=== PATIENT | male | born 1950 | race Caucasian/White ===

== ENCOUNTER 2019-05-11 18:36 | Inpatient (IN) | payer OTHER ==
--- OUTSIDE RECORDS SUMMARY | 2019-05-11 18:38 | XMS REPORT ---
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 Problem Bipolar 1 disorder F31.9 Active Problem Low energy R53.83 Active Problem Kidney stones N20.0 Active Problem Sinus problem J34.9 Active Problem Depression with anxiety F41.8 Active Problem Seasonal allergies J30.2 Active Medications Medication Code Code Instructions Start End Status Dosage System Date Date Lamictal [facility] 18852999023 200 MG Orally Active 1 tablet Once a day Abilify [facility] 32887658437 10 MG Orally Active 1 tablet Once a day Venlafaxine HCl [facility] 11264610494 150 MG Orally Active 1 tablet ER Once a day with food Clonazepam [facility] 93761536802 1 MG Orally PRN Active 1 tablet Results No Known Results Summary Purpose eClinicalWorks Submission
--- OUTSIDE RECORDS SUMMARY | 2019-05-11 18:38 | XMS REPORT ---
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
--- OUTSIDE RECORDS SUMMARY | 2019-05-11 18:39 | XMS REPORT ---
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 Problem Low energy R53.83 Active Problem Obesity (BMI 30.0-34.9) E66.9 Active Problem Ventral hernia without obstruction K43.9 Active or gangrene Problem Hyperlipidemia, unspecified E78.5 Active hyperlipidemia type Problem Genital herpes simplex, unspecified A60.00 Active site Assessment Dizziness R42 Active Assessment Allergic rhinitis, unspecified J30.9 Active seasonality, unspecified trigger Problem Overweight (BMI 25.0-29.9) E66.3 Active Assessment Ventral hernia without obstruction K43.9 Active or gangrene Problem Skin lesion L98.9 Active Problem Dizziness R42 Active Problem Allergic rhinitis, unspecified J30.9 Active seasonality, unspecified trigger Problem Shortness of breath R06.02 Active Problem Polyp of colon, unspecified part of K63.5 Active colon, unspecified type Problem Squamous cell carcinoma of skin C44.92 Active Assessment Hyperlipidemia, unspecified E78.5 Active hyperlipidemia type Problem Depression with anxiety F41.8 Active Problem Bipolar 1 disorder F31.9 Active Problem Kidney stones N20.0 Active Problem Seasonal allergies J30.2 Active Medications Medication Code Code Instructions Start End Status Dosage System Date Date Meclizine HCl [facility] 84071230937 25 mg Orally December Active 1 tablet as Three times a 2018 needed for day dizziness Venlafaxine HCl ND 34799278451 225 MG Orally Active 1 tablet ER Once a day in with food am ASA NDC 0 Oral Once Active 81 mg daily Acyclovir [facility] 33803007087 400 MG Orally Sep 12, Active 1 tablet Twice a day 2017 Atorvastatin [facility] 89714327718 40 MG Orally Active 1 tablet Calcium Once daily in evening Trazodone HCl [facility] 92816359527 100 MG Orally Active 1 tablet at Once a day bedtime Lamictal [facility] 20188777777 200 MG Orally Active 1 tablet Once a day in am Aripiprazole [facility] 20448586798 15 MG Orally Active 1/2 tablet Once daily in am Vitamin D [facility] [address]-01 1000 UNIT Active 1 capsule Orally Once daily OTC Clonazepam [facility] 95202054524 1 MG Orally as Active 1/2 tablet directed as needed Results No Known Results Summary Purpose eClinicalWorks Submission
--- OUTSIDE RECORDS SUMMARY | 2019-05-11 18:39 | XMS REPORT ---
:1950 Author Organization eClinicalWorks Care Team Providers Name Role Phone Lesley Wilson Provider Role Unavailable Allergies No Known Allergies Problems Problem Type Condition Code Onset Dates Condition Status Problem Kidney stones N20.0 Active Problem Depression with anxiety F41.8 Active Problem Seasonal allergies J30.2 Active Problem Polyp of colon, unspecified part of K63.5 Active colon, unspecified type Problem Bipolar 1 disorder F31.9 Active Problem Sinus problem J34.9 Active Problem Genital herpes simplex, unspecified A60.00 Active site Problem Allergic rhinitis, unspecified J30.9 Active seasonality, unspecified trigger Problem Hyperlipidemia, unspecified E78.5 Active hyperlipidemia type Problem Low energy R53.83 Active Problem 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
--- OUTSIDE RECORDS SUMMARY | 2019-05-11 18:39 | XMS REPORT ---
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 Problem Bipolar 1 disorder F31.9 Active Assessment Skin lesion L98.9 Active Problem Sinus problem J34.9 Active Medications Medication Code Code Instructions Start End Status Dosage System Date Date Atorvastatin [facility] 08608367523 40 MG Orally Active 1 tablet Calcium Once daily in evening Clonazepam [facility] 79368911487 1 MG Orally PRN Active 1 tablet Lamictal [facility] 05659955714 200 MG Orally Active 1 tablet Once a day in am Aripiprazole [facility] 64427652121 15 MG Orally Active 1/2 tablet Once daily in am Acyclovir [facility] 21901431636 400 MG Orally Sep 12, Active 1 tablet Twice a day 2017 Abilify [facility] 76941398789 10 MG Orally Active 1 tablet Once a day Venlafaxine HCl [facility] 65967819480 225 MG Orally Active 1 tablet ER Once a day in with food am ASA NDC 0 Oral Once Active 81 mg daily Vitamin D [facility] [address]-42 1000 UNIT Active 1 capsule Orally Once daily OTC Results No Known Results Summary Purpose eClinicalWorks Submission
--- OUTSIDE RECORDS SUMMARY | 2019-05-11 18:39 | XMS REPORT ---
[...] of K63.5 Active colon, unspecified type Assessment Genital herpes simplex, unspecified A60.00 Active site Problem Bipolar 1 disorder F31.9 Active Assessment Hyperlipidemia, unspecified E78.5 Active hyperlipidemia type Problem Sinus problem J34.9 Active Medications Medication Code Code Instructions Start End Status Dosage System Date Date Acyclovir [facility] 51975403504 400 MG Orally Sep 12, Active 1 tablet Twice a day 2017 ASA ND 0 Oral Once Active 81 mg daily Clonazepam [facility] 25313225342 1 MG Orally PRN Active 1 tablet Vitamin D [facility] [address]-80 1000 UNIT Active 1 capsule Orally Once daily OTC Aripiprazole [facility] 27416207346 15 MG Orally Active 1/2 tablet Once daily in am Lamictal [facility] 03250976567 200 MG Orally Active 1 tablet Once a day in am Venlafaxine HCl [facility] 25247718480 225 MG Orally Active 1 tablet ER Once a day in with food am Abilify [facility] 57536524827 10 MG Orally Active 1 tablet Once a day Atorvastatin [facility] 18840272488 40 MG Orally Active 1 tablet Calcium Once daily in evening Results Name Result Date Reference Range Unit Abnormality Flag COMPREHENSIVE METABOLIC PANEL(CMP) ----ALBUMIN/GLOBULI 2.1 [id number] 1.0-2.5 (calc) N N RATIO ----GLOBULIN 2.1 [id number] 1.9-3.7 g/dL N (calc) ----ALKALINE 123 20180913 40-115 U/L H PHOSPHATASE ----BILIRUBIN, 0.7 14350346 0.2-1.2 mg/dL N TOTAL ----CHLORIDE 105 74466741 98-110 mmol/L N ----ALT 22 20180913 9-46 U/L N ----POTASSIUM 4.0 55990344 3.5-5.3 mmol/L N ----AST 21 20180913 10-35 U/L N ----SODIUM 142 14423180 135-146 mmol/L N ----BUN/CREATININE NOT APPLICABLE 20180913 6-22 (calc) RATIO ----eGFR 82 20180913 > OR=60 mL/min/1.7 N [place] [address] ----CALCIUM 9.2 41325780 8.6-10.3 mg/dL N ----CARBON DIOXIDE 27 20180913 20-32 mmol/L N ----ALBUMIN 4.5 34103016 3.6-5.1 g/dL N ----PROTEIN, TOTAL 6.6 90531917 6.1-8.1 g/dL N ----GLUCOSE 89 09864200 65-99 mg/dL N ----UREA NITROGEN 12 20180913 7-25 mg/dL N (BUN) ----CREATININE 1.09 86885912 0.70-1.25 mg/dL N ----eGFR NON-AFR. 70 20180913 > OR=60 mL/min/1.7 [place] [address] LIPID PANEL ----NON HDL 140 14782320 <130 mg/dL H CHOLESTEROL (calc) ----LDL-CHOLESTEROL 108 77944104 mg/dL H (calc) ----CHOL/HDLC RATIO 5.8 38819160 <5.0 (calc) H ----HDL CHOLESTEROL 29 51260080 >40 mg/dL L ----TRIGLYCERIDES 203 80330075 <150 mg/dL H ----CHOLESTEROL, 169 52321099 <200 mg/dL N TOTAL Summary Purpose eClinicalWorks Submission
--- OUTSIDE RECORDS SUMMARY | 2019-05-11 18:39 | XMS REPORT ---
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 Problem Sinus problem J34.9 Active Problem Hyperlipidemia, unspecified E78.5 Active hyperlipidemia type Problem Genital herpes simplex, unspecified A60.00 Active site Problem Overweight (BMI 25.0-29.9) E66.3 Active Problem Skin lesion L98.9 Active Problem Low energy R53.83 Active Problem Allergic rhinitis, unspecified J30.9 Active seasonality, unspecified trigger Problem Shortness of breath R06.02 Active Assessment Depression screening Z13.31 Active Assessment Medicare annual wellness visit, Z00.00 Active subsequent Assessment Overweight (BMI 25.0-29.9) E66.3 Active Problem Polyp of colon, unspecified part of K63.5 Active colon, unspecified type Problem Bipolar 1 disorder F31.9 Active Problem Kidney stones N20.0 Active Problem Squamous cell carcinoma of skin C44.92 Active Problem Seasonal allergies J30.2 Active Medications Medication Code Code Instructions Start End Status Dosage System Date Date Clonazepam [facility] [address]-58 1 MG Orally as Active 1/2 tablet directed as needed Aripiprazole [facility] [address]-36 15 MG Orally Active 1/2 tablet Once daily in am Atorvastatin [facility] 97140796448 40 MG Orally Active 1 tablet Calcium Once daily in evening Venlafaxine HCl [facility] 10137674550 225 MG Orally Active 1 tablet ER Once a day in with food am Lamictal [facility] 17207737777 200 MG Orally Active 1 tablet Once a day in am Vitamin D [facility] [address]-85 1000 UNIT Active 1 capsule Orally Once daily OTC Trazodone HCl [facility] 66418555131 100 MG Orally Active 1 tablet Once a day at bedtime Acyclovir NDC 60353752661 400 MG Orally Sep 12, Active 1 tablet Twice a day 2017 ASA NDC 0 Oral Once Active 81 mg daily Results No Known Results Summary Purpose eClinicalWorks Submission
--- OUTSIDE RECORDS SUMMARY | 2019-05-11 18:39 | XMS REPORT ---
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 Assessment Restless leg syndrome G25.81 Active Problem Restless leg syndrome G25.81 Active Problem Allergic rhinitis, unspecified J30.9 Active seasonality, unspecified trigger Problem Shortness of breath R06.02 Active Problem Hyperlipidemia, unspecified E78.5 Active hyperlipidemia type Problem Genital herpes simplex, unspecified A60.00 Active site Problem Kidney stones N20.0 Active Problem Seasonal allergies J30.2 Active Problem Polyp of colon, unspecified part of K63.5 Active colon, unspecified type Problem Squamous cell carcinoma of skin C44.92 Active Problem Sinus problem J34.9 Active Problem 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 Problem Depression with anxiety F41.8 Active Problem Low energy R53.83 Active Assessment Depression with anxiety F41.8 Active Problem Bipolar 1 disorder F31.9 Active Problem Ventral hernia without obstruction K43.9 Active or gangrene Medications Medication Code Code Instructions Start End Status Dosage System Date Date Clonazepam [facility] 68552443085 1 MG Orally as Active 1/2 tablet directed as needed Venlafaxine HCl [facility] 57384408726 225 MG Orally Active 1 tablet ER Once a day in with food am Meclizine HCl ND 40063918849 25 mg Orally December Active 1 tablet as Three times a 2018 needed for day dizziness Atorvastatin [place] 73919655184 40 MG Orally Active 1 tablet Calcium Once daily in evening Vitamin D [facility] [address]-81 1000 UNIT Active 1 capsule Orally Once daily OTC Lamictal [facility] 86461252587 200 MG Orally Active 1 tablet Once a day in am ASA NDC 0 Oral Once Active 81 mg daily Acyclovir [facility] 31827306462 400 MG Orally Sep 12, Active 1 tablet Twice a day [address] [facility] 46198537182 4 MG Orally as March 13February Active as directed directed [address] [facility] 14802245504 100 MG Orally Active 1 tablet at Once a day bedtime Aripiprazole [facility] 52902617402 15 MG Orally Active 1/2 tablet Once daily in am Ropinirole HCl [facility] 17044238292 0.25 MG Orally March 13, Active 1 tablet 1 Once a day 2018 to 3 hours before bedtime Results No Known Results Summary Purpose eClinicalWorks Submission
[2019-05-11] MEDS ORDERED: NA CHLORIDE 0.9% 2,000 ML ONE (18:57)
--- NOTE | 2019-05-11 19:09 | RAD REPORT ---
EXAM DESCRIPTION: RAD - Chest Single View - 05/11/2019 7:04 pm CLINICAL HISTORY: PAIN Chest pain. COMPARISON: Chest Pa And Lat (2 Views) dated 09/11/2018 FINDINGS: Portable technique limits examination quality. The lungs are grossly clear. The heart is normal in size. No displaced fractures. IMPRESSION: No acute intrathoracic process suspected.
[2019-05-11] MEDS ORDERED: PIPER/TAZO/NS 3.375gm 3.375 GM/100 ML BAG ONE (19:15)
[2019-05-11 19:23] LABS: Absolute Lymphocytes (CBC) 0.4 K/uL (0.7-4.9); Hematocrit 38.2 % (39.6-49.0); Lymphocytes % 7.8 % (15.3-44.8); MPV 9.3 fL (7.6-11.3); RBC Red Blood Cell Count 4.04 M/uL (4.33-5.43)
[2019-05-11 19:26] LABS: Protime INR 1.25
[2019-05-11 19:37] LABS: Urine Blood 2+ (NEG); Urine Glucose NEGATIVE (NEG); Urine Protein TRACE (NEG); Urine pH 5.5 (5.0-7.0)
[2019-05-11] MEDS ORDERED: ONDANSETRON 4 MG/2 ML VIAL ONE (19:37)
[2019-05-11] MEDS ORDERED: KETOROLAC 30 MG/ML INJ ONE (19:37)
[2019-05-11 19:41] LABS: ALT/SGPT 52 U/L (12-78); AST/SGOT 42 U/L (15-37); Albumin 3.5 g/dL (3.4-5.0); Alkaline Phosphatase 123 U/L (45-117); BUN Blood Urea Nitrogen 12 mg/dL (7-18); Bicarbonate 24 mmol/L (21-32); Bilirubin Direct 0.4 mg/dL (0-0.2); Bilirubin Total 1.2 mg/dL (0.2-1.0); CKMB Creatine Kinase MB < 1.0 ng/mL (0.3-3.6); Creatine Phosphokinase 71 U/L (39-308); Glucose Level 98 mg/dL (74-106); Lipase 102 U/L (73-393); Potassium 3.8 mmol/L (3.5-5.1); Protein, Total 6.7 g/dL (6.4-8.2); Sodium Level 137 mmol/L (136-145); Troponin (Emerg Dept Use Only) < 0.02 ng/mL (0.0-0.045)
[2019-05-11 19:43] LABS: Urine Bacteria <20 /HPF (NONE SEEN); Urine Culture Reflex Order NOT NEEDED; Urine RBC <5 /HPF (NONE SEEN)
[2019-05-11 19:44] LABS: Blood Morphology Comment NOT SEEN (NOT SEEN); Platelet Estimate DECR; Urine White Blood Cell Casts OK
[2019-05-11] MEDS ORDERED: ACETAMINOPHEN 500 MG TAB ONE (20:35)
[2019-05-11] MEDS ORDERED: NA CHLORIDE 0.9% 1,000 ML ONE (21:40)
--- NOTE | 2019-05-11 22:02 | EDPHYS ---
Physician Documentation [facility] Name: Navdeep Salvador Age: 69 yrs Sex: Male : 1950 Arrival Date: 05/11/2019 Time: 18:37 Bed 6 Private MD: ED Physician Param Veronica HPI: 05/11 22:00 This 69 yrs old Male presents to ER via Ambulatory with complaints of Fever, tw4 Nausea, Pain All Over, Rash. 22:00 The patient reports fever, not measured (subjective). tw4 Historical: - Allergies: 18:48 Oxycodone; la1 18:48 Codeine; la1 - Home Meds: 18:48 clonazepam 0.5 mg Oral tab 1 tab once at bedtime [Active]; acyclovir 200 mg Oral cap 1 la1 cap every six hours [Active]; ropinirole 0.25 mg oral tab 1 tab [Active]; lamotrigine 100 mg oral tab 1 tab once daily [Active]; atorvastatin 40 mg oral tab 1 tab once daily [Active]; trazodone 100 mg Oral tab 1 tab [Active]; - PMHx: 18:48 CLL; Bipolar disorder; la1 - PSHx: 18:48 Appendectomy; Tonsillectomy; la1 - Immunization history:: Adult Immunizations up to date. - Social history:: Smoking status: Patient/guardian denies using tobacco. - Ebola Screening: : No symptoms or risks identified at this time. ROS: 05/12 04:17 Eyes: Negative for injury, pain, redness, and discharge, Cardiovascular: Negative for tw4 chest pain, palpitations, and edema, Respiratory: Negative for shortness of breath, cough, wheezing, and pleuritic chest pain, Abdomen/GI: Negative for abdominal pain, nausea, vomiting, diarrhea, and constipation, Back: Negative for injury and pain, MS/Extremity: Negative for injury and deformity, Skin: Negative for injury, rash, and discoloration, Neuro: Negative for headache, weakness, numbness, tingling, and seizure. Constitutional: Positive for body aches, chills, fever. Exam: 04:15 Head/Face: Normocephalic, atraumatic. Chest/axilla: Normal chest wall appearance and tw4 motion. Nontender with no deformity. No lesions are appreciated. Cardiovascular: Regular rate and rhythm with a normal S1 and S2. No gallops, murmurs, or rubs. Normal PMI, no JVD. No pulse deficits. Respiratory: Lungs have equal breath sounds bilaterally, clear to auscultation and percussion. No rales, rhonchi or wheezes noted. No increased work of breathing, no retractions or nasal flaring. Abdomen/GI: Soft, non-tender, with normal bowel sounds. No distension or tympany. No guarding or rebound. No evidence of tenderness throughout. Back: No spinal tenderness. No costovertebral tenderness. Full range of motion. 04:15 Constitutional: This is a well developed, well nourished patient who is awake, alert, and in no acute distress. Vital Signs: 05/11 18:48 BP 134 / 71; Pulse 120; Resp 16; Temp 104.0; Pulse Ox 98% on R/A; Weight 86.18 kg; la1 Height 5 ft. 6 in. (167.64 cm); 19:45 Pulse 114; Resp 18; Pulse Ox 100% on R/A; Pain 4/10; mg2 20:24 BP 116 / 54; Pulse 114; Resp 18; Temp 102.9; Pulse Ox 98% on R/A; mg2 22:30 BP 88 / 42; Pulse 91; Resp 18; Pulse Ox 100% on R/A; mg2 22:30 BP 104 / 58; Pulse 97; Resp 18; Pulse Ox 100% on R/A; mg2 22:47 BP 91 / 50; Pulse 94; Resp 18; Temp 98.6(O); Pulse Ox 98% on R/A; mg2 23:06 BP 102 / 63; Pulse 90; Resp 18; Pulse Ox 100% on R/A; mg2 18:48 Body Mass Index 30.67 (86.18 kg, 167.64 cm) la1 MDM: 19:12 Patient medically screened. tw4 05/12 04:18 Data reviewed: vital signs, nurses notes. Data interpreted: ekg monitor tech: rhythm is tw4 normal sinus rhythm. Counseling: I had a detailed discussion with the patient and/or guardian regarding: the historical points, exam findings, and any diagnostic results supporting the discharge/admit diagnosis. Physician consultation: Carol Perdomo MD regarding admission, to the telemetry unit. to the ICU, patient's condition, and will see patient in ED. 05/11 18:52 Order name: Basic Metabolic Panel mg2 05/11 18:52 Order name: Blood Culture Adult (2) mg2 05/11 18:52 Order name: CBC with Diff mg2 05/11 18:52 Order name: Ckmb; Complete Time: 20:33 mg2 05/11 20:35 Interpretation: Within normal limits: CKMB < 1.0. tw4 05/11 18:52 Order name: CPK; Complete Time: 20:33 mg2 05/11 20:35 Interpretation: Within normal limits: CPK 71. tw4 05/11 18:52 Order name: Lactate; Complete Time: 20:33 mg2 05/11 20:36 Interpretation: Within normal limits: LAC 1.1. tw4 05/11 18:52 Order name: LFT's; Complete Time: 20:33 mg2 05/11 20:33 Interpretation: Normal except: AST 42; ALK 123; BILIT 1.2; BILID 0.4. tw4 05/11 18:52 Order name: Lipase; Complete Time: 20:33 mg2 05/11 20:36 Interpretation: Within normal limits: LIP 102. tw4 05/11 18:52 Order name: Procalcitonin; Complete Time: 20:33 mg2 05/11 18:52 Order name: Protime (+inr); Complete Time: 20:33 mg2 05/11 20:33 Interpretation: Normal except: PT 14.6. tw4 05/11 18:52 Order name: Ptt, Activated; Complete Time: 20:33 mg2 05/11 20:36 Interpretation: Within normal limits: PTT 26.5. tw4 05/11 18:52 Order name: Troponin (emerg Dept Use Only); Complete Time: 20:33 mg2 05/11 20:37 Interpretation: Within normal limits: TROPED < 0.02. tw4 05/11 18:52 Order name: Urine Microscopic Only; Complete Time: 20:33 mg2 05/11 18:53 Order name: Basic Metabolic Panel; Complete Time: 20:33 EDMS 05/11 20:34 Interpretation: Normal except: GFR 55. tw4 05/11 18:52 Order name: Chest Single View XRAY; Complete Time: 20:33 mg2 05/11 18:53 Order name: Blood Culture EDMS 05/11 18:53 Order name: CBC with Automated Diff; Complete Time: 20:33 [facility] 05/11 20:34 Interpretation: Normal except: RBC 4.04; HGB 12.8; HCT 38.2; PLT 104; RDW 16.4. 4 05/11 19:27 Order name: CBC Smear Scan; Complete Time: 20:33 EDND 05/11 19:33 Order name: Urine Dipstick--Ancillary (enter results); Complete Time: 20:33 2 05/11 20:35 Interpretation: Normal except: UBLD 2+. tw4 05/11 23:47 Order name: Lactic Dehydrogenase [facility] 05/11 23:47 Order name: Phosphorus EDND 05/11 23:47 Order name: Uric Acid [facility] 05/11 18:52 Order name: Accucheck; Complete Time: 19:20 [facility] 05/11 18:52 Order name: Cardiac monitoring; Complete Time: 19:20 [facility] 05/11 18:52 Order name: EKG - Nurse/Tech; Complete Time: 19:06 [facility] 05/11 18:52 Order name: IV Saline Lock - Large Bore; Complete Time: 19:20 [facility] 05/11 18:52 Order name: Labs collected and sent; Complete Time: 19:20 [facility] 05/11 18:52 Order name: O2 Per Protocol; Complete Time: 19:34 [facility] 05/11 18:52 Order name: O2 Sat Monitoring; Complete Time: 19:34 [facility] 05/11 18:52 Order name: Urine Dipstick-Ancillary (obtain specimen); Complete Time: 19:28 [facility] 05/11 23:10 Order name: CONS Pharmacy Consult [facility] 05/11 23:10 Order name: CONS Physician Consult [facility] Administered Medications: 05/11 19:20 Drug: NS 0.9% (30 ml/kg) 30 ml/kg Route: IV; Rate: bolus; Site: left antecubital; mg2 23:42 Follow up: Response: No adverse reaction; IV Status: Completed infusion; IV Intake: mg2 2000ml 19:38 Drug: Zosyn 3.375 grams Route: IVPB; Infused Over: 60 mins; Site: left antecubital; mg2 23:40 Follow up: Response: No adverse reaction; IV Status: Completed infusion mg2 19:38 Drug: TORadol 30 mg Route: IVP; Site: left antecubital; mg2 20:26 Follow up: Response: No adverse reaction; Marked relief of symptoms mg2 19:38 Drug: Zofran 4 mg Route: IVP; Site: left antecubital; mg2 20:26 Follow up: Response: No adverse reaction; Marked relief of symptoms mg2 20:37 Drug: Tylenol 1000 mg Route: PO; mg2 23:40 Follow up: Response: No adverse reaction; Marked relief of symptoms; Temperature is mg2 decreased 22:16 Drug: Benadryl 25 mg Route: IVP; Site: left antecubital; mg2 23:40 Follow up: Response: No adverse reaction; Marked relief of symptoms mg2 22:16 Drug: NS 0.9% 1000 ml Route: IV; Rate: 1 bolus; Site: left antecubital; mg2 23:40 Follow up: Response: No adverse reaction; IV Status: Completed infusion; IV Intake: mg2 1000ml 22:17 Drug: SOLU-Medrol 125 mg Route: IVP; Site: left antecubital; mg2 23:40 Follow up: Response: No adverse reaction mg2 Point of Care Testing: Blood Glucose: 19:21 Blood Glucose: 110 mg/dL; mg2 Ranges: Critical Glucose Levels:Adult <50 mg/dl or >400 mg/dl <40 mg/dl or >180 mg/dl Disposition: 05/11/19 22:00 Hospitalization ordered by Carol Perdomo for Inpatient Admission. Preliminary diagnosis are Fever of other and unknown origin, Rash and other nonspecific skin eruption. - Bed requested for Intensive Care Unit. - Status is Inpatient Admission. mg2 - Condition is Stable. - Problem is new. - Symptoms are unchanged. UTI on Admission? No Signatures: Dispatcher [employer] EDMS Yoan Yeung RN RN la1 Param Veronica MD MD tw4 Davian Mann RN RN mg2 Janet Mora ar5 Corrections: (The following items were deleted from the chart) 20:38 20:37 Within normal limits: TROPED < 0.02. tw4 tw4 20:38 20:37 Abnormal: TROPED < 0.02. tw4 tw4 23:29 22:00 Hospitalization Ordered by Carol Perdomo MD for Inpatient Admission. Preliminary ar5 diagnosis is Fever of other and unknown origin; Rash and other nonspecific skin eruption. Bed requested for Telemetry/MedSurg (observation). Status is Inpatient Admission. Condition is Stable. Problem is new. Symptoms are unchanged. UTI on Admission? No. tw4 05/12 00:09 05/11 23:29 05/11/2019 22:00 Hospitalization Ordered by Carol Perdomo MD for Inpatient mg2 Admission. Preliminary diagnosis is Fever of other and unknown origin; Rash and other nonspecific skin eruption. Bed requested for Intensive Care Unit. Status is Inpatient Admission. Condition is Stable. Problem is new. Symptoms are unchanged. UTI on Admission? No. ar5 05/12 04:17 04:15 Constitutional: Negative for fever, chills, and weight loss, Eyes: Negative for tw4 injury, pain, redness, and discharge, Cardiovascular: Negative for chest pain, palpitations, and edema, Respiratory: Negative for shortness of breath, cough, wheezing, and pleuritic chest pain, Abdomen/GI: Negative for abdominal pain, nausea, vomiting, diarrhea, and constipation, Back: Negative for injury and pain, Neuro: Negative for headache, weakness, numbness, tingling, and seizure, tw4
--- NOTE | 2019-05-11 22:02 | ER ---
Nurse's Notes [facility] Name: Navdeep Salvador Age: 69 yrs Sex: Male : 1950 Arrival Date: 05/11/2019 Time: 18:37 Bed 6 Private MD: Diagnosis: Fever of other and unknown origin;Rash and other nonspecific skin eruption Presentation: 05/11 18:44 Presenting complaint: Patient states: I have CLL and around 1400 today I started la1 feeling nausea, chills, and broke out in a rash. I take IV chemo, 5 days last week and had labs on Tuesday. Transition of care: patient was not received from another setting of care. Onset of symptoms was May 11, 2019. Risk Assessment: Do you want to hurt yourself or someone else? Patient reports no desire to harm self or others. Initial Sepsis Screen: Does the patient meet any 2 criteria? Temp <36.0*C (96.8*F)) or > 38.3*C (100.9*F). HR > 90 bpm. Yes Does the patient have a suspected source of infection? Yes: S/S of meningitis or endocarditis. Initial Sepsis Screen: If YES to both, name of provider notified: Dane Reid MD Care prior to arrival: None. 18:44 Method Of Arrival: Ambulatory la1 18:44 Acuity: THADDEUS 2 la1 Historical: - Allergies: 18:48 Oxycodone; la1 18:48 Codeine; la1 - Home Meds: 18:48 clonazepam 0.5 mg Oral tab 1 tab once at bedtime [Active]; acyclovir 200 mg Oral cap 1 la1 cap every six hours [Active]; ropinirole 0.25 mg oral tab 1 tab [Active]; lamotrigine 100 mg oral tab 1 tab once daily [Active]; atorvastatin 40 mg oral tab 1 tab once daily [Active]; trazodone 100 mg Oral tab 1 tab [Active]; - PMHx: 18:48 CLL; Bipolar disorder; la1 - PSHx: 18:48 Appendectomy; Tonsillectomy; la1 - Immunization history:: Adult Immunizations up to date. - Social history:: Smoking status: Patient/guardian denies using tobacco. - Ebola Screening: : No symptoms or risks identified at this time. Screenin:21 Abuse screen: Denies threats or abuse. Denies injuries from another. Nutritional mg2 screening: No deficits noted. Tuberculosis screening: No symptoms or risk factors identified. Fall Risk IV access (20 points). Assessment: 19:21 General: Appears in no apparent distress. comfortable, Behavior is calm, cooperative. mg2 Pain: Complains of pain in whole body Pain does not radiate. Pain currently is 4 out of 10 on a pain scale. Quality of pain is described as aching, Pain began gradually, Is intermittent. Neuro: Level of Consciousness is awake, alert, obeys commands, Oriented to person, place, time, situation. Cardiovascular: Capillary refill < 3 seconds Patient's skin is warm and dry. Respiratory: Airway is patent Respiratory effort is even, unlabored, Respiratory pattern is regular, symmetrical. GI: Abdomen is round non-distended, Reports nausea. : No signs and/or symptoms were reported regarding the genitourinary system. EENT: No signs and/or symptoms were reported regarding the EENT system. Derm: Skin is intact, is healthy with good turgor, Skin is red, Rash noted that is itchy, red, urticaria, on whole body. Musculoskeletal: Circulation, motion, and sensation intact. Capillary refill < 3 seconds. 20:24 Reassessment: Patient states feeling better. mg2 Vital Signs: 18:48 BP 134 / 71; Pulse 120; Resp 16; Temp 104.0; Pulse Ox 98% on R/A; Weight 86.18 kg; la1 Height 5 ft. 6 in. (167.64 cm); 19:45 Pulse 114; Resp 18; Pulse Ox 100% on R/A; Pain 4/10; mg2 20:24 BP 116 / 54; Pulse 114; Resp 18; Temp 102.9; Pulse Ox 98% on R/A; mg2 22:30 BP 88 / 42; Pulse 91; Resp 18; Pulse Ox 100% on R/A; mg2 22:30 BP 104 / 58; Pulse 97; Resp 18; Pulse Ox 100% on R/A; mg2 22:47 BP 91 / 50; Pulse 94; Resp 18; Temp 98.6(O); Pulse Ox 98% on R/A; mg2 23:06 BP 102 / 63; Pulse 90; Resp 18; Pulse Ox 100% on R/A; mg2 18:48 Body Mass Index 30.67 (86.18 kg, 167.64 cm) la1 ED Course: 18:37 Patient arrived in ED. as 18:46 Triage completed. la1 18:48 Arm band placed on left wrist. la1 18:51 Davian Mann, RN is Primary Nurse. mg2 19:04 Chest Single View XRAY In Process Unspecified. EDMS 19:05 First set of blood cultures drawn by me. mg2 19:12 Param Veronica MD is Attending Physician. tw4 19:20 No provider procedures requiring assistance completed. Inserted saline lock: 20 gauge mg2 in left antecubital area, using aseptic technique. Blood collected. 19:23 Patient has correct armband on for positive identification. quality assurance specialist on. Pulse mg2 ox on. NIBP on. Door closed. 21:55 Carol Perdomo MD is Hospitalizing Provider. tw4 23:54 Patient admitted, IV remains in place. mg2 Administered Medications: 19:20 Drug: NS 0.9% (30 ml/kg) 30 ml/kg Route: IV; Rate: bolus; Site: left antecubital; mg2 23:42 Follow up: Response: No adverse reaction; IV Status: Completed infusion; IV Intake: mg2 2000ml 19:38 Drug: Zosyn 3.375 grams Route: IVPB; Infused Over: 60 mins; Site: left antecubital; mg2 23:40 Follow up: Response: No adverse reaction; IV Status: Completed infusion mg2 19:38 Drug: TORadol 30 mg Route: IVP; Site: left antecubital; mg2 20:26 Follow up: Response: No adverse reaction; Marked relief of symptoms mg2 19:38 Drug: Zofran 4 mg Route: IVP; Site: left antecubital; mg2 20:26 Follow up: Response: No adverse reaction; Marked relief of symptoms mg2 20:37 Drug: Tylenol 1000 mg Route: PO; mg2 23:40 Follow up: Response: No adverse reaction; Marked relief of symptoms; Temperature is mg2 decreased 22:16 Drug: Benadryl 25 mg Route: IVP; Site: left antecubital; mg2 23:40 Follow up: Response: No adverse reaction; Marked relief of symptoms mg2 22:16 Drug: NS 0.9% 1000 ml Route: IV; Rate: 1 bolus; Site: left antecubital; mg2 23:40 Follow up: Response: No adverse reaction; IV Status: Completed infusion; IV Intake: mg2 1000ml 22:17 Drug: SOLU-Medrol 125 mg Route: IVP; Site: left antecubital; mg2 23:40 Follow up: Response: No adverse reaction mg2 Point of Care Testing: Blood Glucose: 19:21 Blood Glucose: 110 mg/dL; mg2 Ranges: Intake: 23:40 IV: 1000ml; Total: 1000ml. mg2 23:42 IV: 2000ml; Total: 3000ml. mg2 Outcome: 22:00 Decision to Hospitalize by Provider. tw4 23:54 Admitted to ICU accompanied by nurse, accompanied by tech, via stretcher, room 7, on mg2 monitor, with chart, Report called to JUAREZ Trotter 23:54 Condition: stable 23:54 Instructed on the need for admit, Demonstrated understanding of instructions. 05/12 00:09 Patient left the ED. mg2 Signatures: Dispatcher [employer] Nora Masters Lee, RN RN la1 Param Veronica MD MD tw4 Davian Mann RN RN mg2
[2019-05-11] MEDS ORDERED: METHYLPREDNISOLONE 125 MG INJ ONE (22:13)
[2019-05-11] MEDS ORDERED: DIPHENHYDRAMINE 50 MG/ML VIAL ONE (22:13)
[2019-05-11] MEDS ORDERED: ACETAMINOPHEN 500 MG TAB PO PRN (23:05)
[2019-05-11] MEDS ORDERED: MORPHINE 2 MG/ML SYR IV PRN (23:05)
[2019-05-11] MEDS ORDERED: ONDANSETRON 4 MG/2 ML VIAL IV PRN (23:05)
[2019-05-11] MEDS ORDERED: NA CHLORIDE 0.9% 1,000 ML IV SCH (23:45)
[2019-05-12] MEDS ORDERED: HYDROCORTISONE SUC 100 MG INJ IV SCH (01:00)
[2019-05-12] MEDS: NA CHLORIDE 0.9% 1,000 ML IV SCH ×2 (02:04→07:45)
[2019-05-12 02:22] LABS: Phosphorus 2.6 mg/dL (2.5-4.9); Uric Acid 3.5 mg/dL (3.5-7.2)
[2019-05-12 05:30] LABS: Absolute Lymphocytes (CBC) 0.5 K/uL (0.7-4.9); Hematocrit 32.7 % (39.6-49.0); MPV 9.9 fL (7.6-11.3); RBC Red Blood Cell Count 3.45 M/uL (4.33-5.43)
[2019-05-12 05:43] LABS: Albumin 2.9 g/dL (3.4-5.0); Bilirubin Total 0.7 mg/dL (0.2-1.0); Potassium 4.1 mmol/L (3.5-5.1); Protein, Total 5.4 g/dL (6.4-8.2)
[2019-05-12] MEDS ORDERED: TRAZODONE 50 MG TABLET PO PRN (06:56)
[2019-05-12] MEDS: DIPHENHYDRAMINE 50 MG/ML VIAL IV PRN ×2 (07:51→13:31)
--- NOTE | 2019-05-12 08:37 | P.HP ---
Certification for Inpatient Patient admitted to: Inpatient With expected LOS: >2 Midnights Patient will require the following post-hospital care: None Practitioner: I am a practitioner with admitting privileges, knowledge of patient current condition, hospital course, and medical plan of care. Services: Services provided to patient in accordance with Admission requirements found in Title 42 Section 412.3 of the Code of Federal Regulations Patient History Date of Service: 05/12/19 Reason for admission: fever/hypotension/status post chemotherapy History of Present Illness: Patient is a 69-year-old gentleman who came to the hospital with fever and rigors. Patient recently had chemotherapy for CLL. Patient had a temperature of a 104. Patient came into the hospital for further evaluation. In the hospital patient's workup did not reveal any significant abnormality. Patient' s chest x-ray was negative. Patient UA with microscopy was negative. Patient was hypotensive with blood pressure of 80/50 after 2 L fluid bolus. Decision was made to admit the patient to the hospital for further evaluation. Patient will be started on antibiotics prophylactically. If patient remains afebrile then will be able to transfer him out of ICU. Allergies codeine Allergy (Verified 05/11/19 23:38) Hives oxycodone Allergy (Verified 05/11/19 23:39) Hives Home Medications: Acyclovir 400 mg PO BID 05/12/19 Allopurinol 300 mg PO DAILY 05/12/19 Atorvastatin Calcium 40 mg PO BEDTIME 05/12/19 Ondansetron [Zofran] 4 mg PO Q6H PRN 05/12/19 Trazodone [Desyrel] 100 mg PO BEDTIME PRN 05/12/19 Venlafaxine HCl [Venlafaxine HCl ER] 225 mg PO DAILY 05/12/19 - Past Medical/Surgical History Has patient received pneumonia vaccine in the past: Yes Diabetic: No -: CLL -: Bipolar -: Appendectomy -: Tonsilectomy - Family History Father Family History: Reviewed- Non-Contributory - Social History Smoking Status: Never smoker Alcohol use: No CD- Drugs: No Caffeine use: Yes Place of Residence: Home Review of Systems 10-point ROS is otherwise unremarkable Physical Examination - Vital Signs Temperature: 98.4 F Blood Pressure: 116/63 Pulse: 74 Respirations: 18 Pulse Ox (%): 97 - Physical Exam General: Alert, In no apparent distress, Oriented x3 HEENT: Atraumatic, PERRLA, Mucous membr. moist/pink, EOMI, Sclerae nonicteric Neck: Supple, 2+ carotid pulse no bruit, No LAD, Without JVD or thyroid abnormality Respiratory: Clear to auscultation bilaterally, Normal air movement Cardiovascular: Regular rate/rhythm, Normal S1 S2, No murmurs Gastrointestinal: Normal bowel sounds, Soft and benign, Non-distended, No tenderness Musculoskeletal: No clubbing, No swelling, No tenderness Integumentary: No rashes Neurological: Normal gait, Normal speech, Normal tone, Sensation intact, Cranial nerves 3-12 intact, Normal affect, Abnormal strength (4/5) Lymphatics: No axilla or inguinal lymphadenopathy - Studies Laboratory Data (last 24 hrs) 05/11/19 19:05: PT 14.6 H, INR 1.25, APTT 26.5 05/11/19 19:05: WBC 5.7, Hgb 12.8 L, Hct 38.2 L, Plt Count 104 L 05/11/19 19:05: Sodium 137, Potassium 3.8, BUN 12, Creatinine 1.30, Glucose 98, Total Bilirubin 1.2 H, AST 42 H, ALT 52, Alkaline Phosphatase 123 H, Lipase 102 Assessment & Plan - Problems (Diagnosis) (1) Fever Current Visit: Yes Status: Acute (2) Rigors Current Visit: Yes Status: Acute (3) Hypotension Current Visit: Yes Status: Acute (4) CLL (chronic lymphocytic leukemia) Current Visit: Yes Status: Acute (5) Status post chemotherapy Current Visit: Yes Status: Acute - Plan Plan: 1. IV hydration/monitor hemodynamics closely 2. IV antibiotics 3. Benadryl and steroids 4. Transferred to ICU 5. Oncology consultation 6. Check labs including uric acid, LDH, phosphate level 7. GI and DVT prophylaxis Discharge Plan: Home Plan to discharge in: Greater than 2 days - Advance Directives Does patient have a Living Will: No Does patient have a Durable POA for Healthcare: No - Code Status/Comfort Care Code Status Assessed: Yes Code Status: Full Code Critical Care: No Time Spent Managing PTS Care (In Minutes): 40
[2019-05-12] MEDS ORDERED: LORAZEPAM 0.5 MG TABLET PO PRN (08:57)
[2019-05-12] MEDS ORDERED: HOME MED 1 EA UNK (Venlafaxine Hcl [Venlafaxine Hcl Er] 225 MG) PO SCH (09:00)
[2019-05-12] MEDS ORDERED: ALLOPURINOL 300 MG TAB PO SCH (09:00)
[2019-05-12] MEDS ORDERED: NACHLORIDE 0.45% 1,000 ML IV SCH (09:00)
[2019-05-12] MEDS ORDERED: ACYCLOVIR 400 MG TABLET PO SCH (09:00)
[2019-05-12] MEDS ORDERED: predniSONE 20 MG TAB PO SCH (09:00)
--- NOTE | 2019-05-12 09:05 | P.PN ---
Subjective Date of Service: 05/12/19 Primary Care Provider: none; Oncology-Dr. Cox Chief Complaint: fever/hypotension/status post chemotherapy Subjective: Other (Patient doing better today. Rash improved. Slight anxiety noted.) Physical Examination - Vital Signs Temperature: 98.4 F Blood Pressure: 116/63 Pulse: 74 Respirations: 18 Pulse Ox (%): 97 - Physical Exam General: Alert, In no apparent distress, Oriented x3, Cooperative, Other (Mild anxiety) HEENT: Atraumatic Neck: Supple Respiratory: Clear to auscultation bilaterally, Normal air movement Cardiovascular: Normal pulses, Regular rate/rhythm Gastrointestinal: Normal bowel sounds, Soft and benign, Non-distended, No tenderness, No masses, No rebound, No guarding Musculoskeletal: No erythema, No tenderness, No warmth Integumentary: Other (Blanchable erythematous rash throughout dorsal and extremities. Appears allergic in nature) Neurological: Normal speech, Normal strength at 5/5 x4 extr, Normal tone, Normal affect - Studies Laboratory Data (last 24 hrs) 05/11/19 19:05: PT 14.6 H, INR 1.25, APTT 26.5 05/11/19 19:05: WBC 5.7, Hgb 12.8 L, Hct 38.2 L, Plt Count 104 L 05/11/19 19:05: Sodium 137, Potassium 3.8, BUN 12, Creatinine 1.30, Glucose 98, Total Bilirubin 1.2 H, AST 42 H, ALT 52, Alkaline Phosphatase 123 H, Lipase 102 Medications List Reviewed: Yes Assessment & Plan Discharge Plan: Home Plan to discharge in: 48 Hours Physician Review Additional Text: Impression: Fever, rash, hypotension etiology unknown suspect drug allergy complicated with recent start of chemotherapy CLL Bipolar disorder Restless leg syndrome Hyperlipidemia Chronic herpes Plan: Fever, rash, hypotension etiology unknown suspect drug allergy complicated with recent start of chemotherapy: Continue IV fluids at this time. Urinalysis unremarkable. Chest x-ray unremarkable. Case discussed at length with oncology. Oncology suspects drug allergy as patient was recently started on Bactrim, allopurinol. Both medications have been discontinued at this time. Will start oral steroid. Will also provide Zyrtec, Pepcid. Will monitor rash closely. Await blood cultures. Will review and restart medication. Will provide DVT prophylaxis-SCD. If doing well after lunch will transition to the floor. Anticipate discharge within the next 24-48 hr with clinical improvement. CLL: Patient recently started chemotherapy. Case discussed with oncology. Bipolar disorder: Will review and restart home medication. Will provide medication for anxiety. Restless leg syndrome: Patient recently started medication without success. Will monitor closely. Hyperlipidemia: Restart home medication. Chronic herpes: Restart antiviral medication Time Spent Managing Pts Care (In Minutes): 55
--- NOTE | 2019-05-12 09:08 | EKG ---
Test Date: 2019-05-11 Test Time: 18:58:26 Clinical Unit Educator: AER MEASUREMENT RESULTS: Intervals: Rate: 115 RI: 148 QRSD: 94 QT: 298 QTc: 412 [place]: P: 53 RI: 148 QRS: 54 T: 51 INTERPRETIVE STATEMENTS: Sinus tachycardia Otherwise normal ECG No previous ECG available for comparison Electronically Signed On 05-12-19 09:07:49 CDT by Khanh Morales
[2019-05-12] MEDS: VENLAFAXINE PO SCH (09:52)
[2019-05-12] MEDS: VENLAFAXINE ER 150 MG CAPS PO SCH (09:52)
[2019-05-12] MEDS: FAMOTIDINE 20 MG TAB PO SCH ×2 (09:52→20:30)
[2019-05-12] MEDS: CETIRIZINE HCL 5 MG TABLET PO SCH (09:52)
[2019-05-12] MEDS: ACYCLOVIR 400 MG TABLET PO SCH (09:53)
[2019-05-12] MEDS: predniSONE 20 MG TAB PO SCH ×2 (09:55→20:37)
[2019-05-12] MEDS: PIPER/TAZO/NS 3.375gm 3.375 GM/100 ML BAG IVPB SCH ×3 (09:56→16:44)
[2019-05-12] MEDS: LORAZEPAM 0.5 MG TABLET PO SCH ×2 (14:48→21:00)
[2019-05-12] MEDS ORDERED: DIPHENHYDRAMINE 50 MG/ML VIAL IV ONE (15:51)
[2019-05-12] MEDS ORDERED: ATORVASTATIN 40 MG TAB PO SCH (21:00)
[2019-05-12] MEDS ORDERED: ROPINIROLE HCL 0.25 MG TAB PO SCH (21:00)
[2019-05-12] MEDS ORDERED: lamoTRIgine 100 MG TAB PO SCH (21:00)
[2019-05-12] MEDS ORDERED: GABAPENTIN 300 MG CAP PO SCH (21:00)
[2019-05-13] MEDS: PIPER/TAZO/NS 3.375gm 3.375 GM/100 ML BAG IVPB SCH ×2 (01:30→08:09)
[2019-05-13 06:08] LABS: Magnesium 2.2 mg/dL (1.8-2.4); Potassium 4.3 mmol/L (3.5-5.1)
[2019-05-13 06:17] LABS: Absolute Lymphocytes (CBC) 0.7 K/uL (0.7-4.9); Basophils % 0.2 % (0-1.3); Hematocrit 30.3 % (39.6-49.0); RBC Red Blood Cell Count 3.18 M/uL (4.33-5.43)
[2019-05-13] MEDS: VENLAFAXINE PO SCH (08:09)
[2019-05-13] MEDS: VENLAFAXINE ER 150 MG CAPS PO SCH (08:09)
[2019-05-13] MEDS: predniSONE 20 MG TAB PO SCH (08:10)
[2019-05-13] MEDS: CETIRIZINE HCL 5 MG TABLET PO SCH (08:10)
[2019-05-13] MEDS: FAMOTIDINE 20 MG TAB PO SCH (08:10)
[2019-05-13] MEDS: LORAZEPAM 0.5 MG TABLET PO SCH (08:11)
[2019-05-13] MEDS: ACYCLOVIR 400 MG TABLET PO SCH (08:11)
[2019-05-13] MEDS: DIPHENHYDRAMINE 50 MG/ML VIAL IV PRN (09:41)
[2019-05-13] MEDS ORDERED: METHYLPREDNISOLONE 40 MG INJ IV ONE (10:52)
[2019-05-13 11:08] LABS: Ferritin 180.6 ng/mL (26-388)
--- NOTE | 2019-05-13 11:47 | P.DS ---
Admission Date: 05/11/19 Discharge Date: 05/13/19 Primary Care Provider: none; Oncology-Dr. Cox Disposition: ROUTINE DISCHARGE Discharge Condition: GOOD Reason for Admission: fever/hypotension/status post chemotherapy Consultations: Oncology-Dr. Cox Procedures: CXR: Unremarkable Medical Problem List: Fever, rash, hypotension etiology likely related to drug allergy(Allopurinol or other) complicated with recent start of chemotherapy CLL Bipolar disorder Restless leg syndrome Hyperlipidemia Chronic herpes Brief History of Present Illness: 69-year-old male recently started on chemotherapy for CLL presented to emergency room with fever, chills. Temperature was as high as 104. Patient also had a rash to his body. Upon initial presentation patient was hypotensive with blood pressure around 80/50. Patient received IV fluids in ER with improvement and admitted for further evaluation. Hospital Course: Patient presented with fever, chills and rash. Patient also was hypotensive upon admission. Drug allergy is suspected. Patient recently started chemotherapy for CLL. New medication recently includes allopurinol. Chest x- ray unremarkable. Blood cultures unremarkable. White count also unremarkable. Infectious cause has been ruled out. Blood pressures now back to baseline. The rash resolved but reoccurred when Zosyn was given. Patient received IV Solu -Medrol. Zosyn discontinued. Rash has improved. Rash prior to admission likely related to allopurinol. Case discussed at length with Oncology who sees the patient regularly. He is to keep a diary to document for any further rashes. At discharge will recommend to continue with prednisone 20 mg 1 pill twice daily for 5 days then 1 pill once daily for 5 days. Patient will also continue with Zyrtec 10 mg daily and Pepcid 20 mg 1 pill twice daily. Will recommend outpatient evaluation with insulation hoseman to further evaluate. Patient will require allergy testing. Patient will follow up with oncology within the next 1-2 days. Allopurinol has been discontinued. No need for antibiotics at this time. Patient with CLL. Patient recently started chemotherapy. Case discussed at length with oncology. No need for antibiotics at discharge. Allopurinol has been discontinued as above. Patient with bipolar disorder. This has remained stable. Patient will continue with his medications-trazodone 100 mg at bedtime as needed, Lamictal 200 mg daily, and Effexor ER 225 mg daily. Patient with restless leg syndrome. Patient reports Requip not effective. This has been discontinued. Patient takes gabapentin 300 mg 2 pills at bedtime. Patient may continue with medication. Recommend follow up with neurology to further evaluate and treat. Patient with chronic herpes. Patient will continue with acyclovir 400 mg 1 pill twice daily for suppressive therapy. Patient with hyperlipidemia. Patient may continue with his medication Lipitor 40 mg daily. Vital Signs/Physical Exam: Temp Pulse Resp BP Pulse Ox 97.5 F 65 20 100/59 L 96 05/13/19 08:00 05/13/19 08:00 05/13/19 08:00 05/13/19 08:00 05/13/19 08:00 General: Alert, In no apparent distress, Oriented x3, Cooperative HEENT: Atraumatic Neck: Supple Respiratory: Clear to auscultation bilaterally, Normal air movement Cardiovascular: Normal pulses, Regular rate/rhythm Gastrointestinal: Normal bowel sounds, Soft and benign, Non-distended, No tenderness, No masses, No rebound, No guarding Musculoskeletal: Other (Erythematous allergic rash resolving.) Neurological: Normal speech, Normal strength at 5/5 x4 extr, Normal tone, Normal affect Laboratory Data at Discharge: WBC 6.1 K/uL (4.3-10.9) D 05/13/19 05:21 Hgb 9.9 g/dL (13.6-17.9) L 05/13/19 05:21 Hct 30.3 % (39.6-49.0) L 05/13/19 05:21 Plt Count 115 K/uL (152-406) L D 05/13/19 05:21 PT 14.6 SECONDS (9.5-12.5) H 05/11/19 19:05 INR 1.25 05/11/19 19:05 APTT 26.5 SECONDS (24.3-36.9) 05/11/19 19:05 Sodium 145 mmol/L (136-145) 05/13/19 05:21 Potassium 4.3 mmol/L (3.5-5.1) 05/13/19 05:21 BUN 17 mg/dL (7-18) 05/13/19 05:21 Creatinine 0.97 mg/dL (0.55-1.3) 05/13/19 05:21 Glucose 118 mg/dL (74-106) H 05/13/19 05:21 Uric Acid 3.5 mg/dL (3.5-7.2) 05/12/19 00:52 Phosphorus 2.6 mg/dL (2.5-4.9) 05/12/19 00:52 Magnesium 2.2 mg/dL (1.8-2.4) 05/13/19 05:21 Total Bilirubin 0.7 mg/dL (0.2-1.0) 05/12/19 04:57 AST 37 U/L (15-37) 05/12/19 04:57 ALT 49 U/L (12-78) 05/12/19 04:57 Alkaline Phosphatase 111 U/L (45-117) 05/12/19 04:57 Lipase 102 U/L (73-393) 05/11/19 19:05 Home Medications: Acyclovir 400 mg PO BID 05/12/19 Atorvastatin Calcium 40 mg PO BEDTIME 05/12/19 Gabapentin 2 cap PO BEDTIME 05/12/19 Ondansetron [Zofran (Odt)*] 4 mg PO Q6H PRN 05/12/19 Trazodone [Desyrel*] 100 mg PO BEDTIME PRN 05/12/19 Venlafaxine HCl [Venlafaxine HCl ER] 225 mg PO DAILY 05/12/19 lamoTRIgine [Lamictal*] 200 mg PO DAILY 05/12/19 Cetirizine HCl [Zyrtec] 10 mg PO DAILY #30 tablet 05/13/19 Famotidine [Pepcid*] 20 mg PO BID #60 tab 05/13/19 predniSONE [Prednisone*] 20 mg PO SEECOM #15 tab 05/13/19 New Medications: Cetirizine HCl [Zyrtec] 10 mg PO DAILY #30 tablet Famotidine [Pepcid*] 20 mg PO BID #60 tab predniSONE [Prednisone*] 20 mg PO SEECOM #15 tab Patient Discharge Instructions: 1. Recommend follow up with Oncology in the next 1-2 days. 2. Patient presented with fever, chills and rash. Patient also was hypotensive upon admission. Drug allergy is suspected. Patient recently started chemotherapy for CLL. New medication recently includes allopurinol. Chest x-ray unremarkable. Blood cultures unremarkable. White count also unremarkable. Infectious cause has been ruled out. Blood pressures now back to baseline. The rash resolved but reoccurred when Zosyn was given. Patient received IV Solu-Medrol. Zosyn discontinued. Rash prior to admission likely related to allopurinol. Case discussed at length with Oncology who sees the patient regularly. At discharge rash has improved with medication. He is to keep a diary to document for any further rashes. At discharge will recommend to continue with prednisone 20 mg 1 pill twice daily for 5 days then 1 pill once daily for 5 days. Patient will also continue with Zyrtec 10 mg daily and Pepcid 20 mg 1 pill twice daily. Will recommend outpatient evaluation with insulation hoseman to further evaluate. Patient will require allergy testing. Patient will follow up with oncology within the next 1-2 days. Allopurinol has been discontinued. No need for antibiotics at this time. 3. Patient with CLL. Patient recently started chemotherapy. Case discussed at length with oncology. No need for antibiotics at discharge. Allopurinol has been discontinued as above. 4. Patient with bipolar disorder. This has remained stable. Patient will continue with his medications-trazodone 100 mg at bedtime as needed, Lamictal 200 mg daily, and Effexor ER 225 mg daily. 5. Patient with restless leg syndrome. Patient reports Requip not effective. This has been discontinued. Patient takes gabapentin 300 mg 2 pills at bedtime. Patient may continue with medication. Recommend follow up with neurology to further evaluate and treat. 6. Patient with chronic herpes. Patient will continue with acyclovir 400 mg 1 pill twice daily for suppressive therapy. 7. Patient with hyperlipidemia. Patient may continue with his medication Lipitor 40 mg daily. Diet: Regular Activity: Ad marisol Time spent managing pt's care (in minutes): 55
[2019-05-13] MEDS ORDERED: predniSONE 20 MG TAB PO SCH (21:00)
== END 2019-05-13 13:29 | disposition home or self-care (01) | DRG 864 ==
LOC: ER 18:36 → ERHOLD 23:05 → 3RD-ICU 23:55 → 4TH 05-12 14:00
PROVIDERS: ADMIT Hospitalist; ATTEND Hospitalist
DX: R50.2 Drug induced fever (principal); C91.10 Chronic lymphocytic leukemia of B-cell type not having achieved remission; I95.2 Hypotension due to drugs; L27.0 Generalized skin eruption due to drugs and medicaments taken internally; T50.4X5A Adverse effect of drugs affecting uric acid metabolism, initial encounter; Y92.009 Unspecified place in unspecified non-institutional (private) residence as the place of occurrence of the external cause; F31.9 Bipolar disorder, unspecified; G25.81 Restless legs syndrome; E78.5 Hyperlipidemia, unspecified; B00.9 Herpesviral infection, unspecified; Z79.899 Other long term (current) drug therapy
CPT/HCPCS: 36415; 71045; 80048; 80053; 80076; 81003; 81015; 82550; 82553; 82607; 82728; 82962; 83540; 83605; 83615; 83690; 83735; 84100; 84145; 84466; 84484; 84550; 85025; 85610; 85730; 87040; 93005; 96365; 96366; 96368; 96375; 99285; J2405; J2543; J2920; J2930; J7030; J7512